=== PATIENT | male | born 1950 | race African-American/Black ===

== ENCOUNTER 2018-05-30 19:33 | Emergency (ER) | payer OTHER, BC ==
[~2018-05-30] VITALS: Ht 190.5 cm; Wt 89.1 kg
[2018-05-30 19:43] VITALS: Ht 190.5 cm; Wt 89.1 kg
[2018-05-30] MEDS ORDERED: OXYC-438 PO (20:33)
[2018-05-30] MEDS ORDERED: TRA50 PO (20:33)
[2018-05-30] MEDS ORDERED: INSU100I12 SQ (20:35)
[2018-05-30] MEDS ORDERED: LANT3I SC (20:35)
[2018-05-30] MEDS ORDERED: HYDR25TA6 PO (20:36)
[2018-05-30] MEDS ORDERED: CARV25TA79 PO (20:36)
[2018-05-30] MEDS ORDERED: LISI40TA3 PO (20:36)
[2018-05-30] MEDS ORDERED: LEVO150T7 PO (20:37)
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
[2018-05-30 22:01] VITALS: BP 156/88; PULSE 78; RESP 16
== END 2018-05-30 22:13 | disposition home or self-care (01) ==
LOC: E/R 19:33
DX: E11.649 Type 2 diabetes mellitus with hypoglycemia without coma (principal); I10 Essential (primary) hypertension; F17.210 Nicotine dependence, cigarettes, uncomplicated; Z79.4 Long term (current) use of insulin
CPT/HCPCS: 82962; 99282

== ENCOUNTER 2018-10-17 17:47 | Emergency (ER) | payer OTHER, BC ==
[~2018-10-17] VITALS: Ht 182.9 cm; Wt 77.3 kg
[~2018-10-17 17:47] MED LIST: CARV25TA79 PO; HYDR25TA6 PO; INSU100I12 SQ; LANT3I SC; LEVO150T7 PO; LISI40TA3 PO; OXYC-438 PO; TRA50 PO
[2018-10-17] MEDS ORDERED: SOD CHLORIDE 0.9% 500 ML IV STA (18:08)
[2018-10-17] MEDS ORDERED: DEXTROSE 50% 50 ML SYRINGE IV STA (18:08)
[2018-10-17 18:13] VITALS: Ht 182.9 cm; Wt 77.3 kg
--- NOTE | 2018-10-17 18:37 | ERD ---
ER Documentation Chief Complaint Chief Complaint hypoglycemia HPI This is a 68-year-old man brought in by EMS for hypoglycemia, patient does have diabetes and uses insulin/Lantus for blood sugar control but states he used his medication today and did not eat a full meal for lunch. Patient denies fevers or chills, no chest pain or shortness of breath, no vomiting, no seizure activity. ROS All systems reviewed and are negative except as per history of present illness. Medications Home Meds Reported Medications Levothyroxine Sodium* (Levothyroxine Sodium*) 150 Mcg Tablet, 150 MCG PO BEFORE BREAKFAST, #30 TAB 05/30/18 Lisinopril* (Lisinopril*) 40 Mg Tablet, 40 MG PO DAILY, #30 TAB 05/30/18 Carvedilol* (Carvedilol*) 25 Mg Tablet, 25 MG PO BID, #60 TAB 05/30/18 Hydrochlorothiazide* (Hydrochlorothiazide*) 25 Mg Tab, 25 MG PO DAILY, #30 TAB 05/30/18 Insulin Glargine* (Lantus*) 100 Unit/Ml Soln, 15 UNIT SC QHS, #1 VIAL 05/30/18 Insulin Lispro (Humalog Kwikpen U-100) 100 Unit/1 Ml Insuln.pen, 7 UNIT SQ BID, EA 05/30/18 Trazodone Hcl* (Desyrel*) 50 Mg Tablet, 50 MG PO QHS, #30 TAB 05/30/18 Oxycodone HCl/Acetaminophen (Oxycodone-Acetaminophen 5-325) 1 Each Tablet, 1 EACH PO Q8H, TAB 05/30/18 Allergies Allergies: Coded Allergies: No Known Allergy (Unverified , 05/30/18) PMhx/Soc Diabetes mellitus, hypertension, hypothyroidism History of Surgery: Yes (RIGHT HAND, HEMORRHOIDS ) Anesthesia Reaction: No Hx Neurological Disorder: No Hx Respiratory Disorders: No Hx Cardiac Disorders: Yes (HTN ) Hx Psychiatric Problems: No Hx Miscellaneous Medical Probl: Yes (DM II ) Hx Alcohol Use: Yes (SOCIALLY ) Hx Substance Use: Yes (MARIJUANA ) Hx Tobacco Use: Yes FmHx Family History: No diabetes Physical Exam Vitals Vital Signs Date Temp Pulse Resp B/P (MAP) Pulse Ox O2 O2 Flow FiO2 Time Delivery Rate 10/18/18 97.3 67 14 108/67 100 Room Air 06:00 (81) 10/18/18 97.3 64 25 155/72 100 Room Air 00:00 (99) 10/17/18 62 12 178/91 98 Room Air 18:15 (120) 10/17/18 97.2 65 14 170/152 96 18:13 (158) Physical Exam GENERAL: Well-developed, well-nourished, well-hydrated, patient was initially confused and minimally responsive although after IV dextrose mental status improved. Patient was afebrile HEENT: Moist mucous membranes, pink conjunctiva, no cervical spine tenderness or step-off deformities, no goiter, no jaundice or icterus, extraocular movements intact without pain. No submandibular induration, and no pharyngeal erythema NEURO: Alert and oriented 3, no focal deficits or facial asymmetry, moving all extremities, answers questions and follows commands without difficulty CARDIAC: Regular rate and rhythm, no murmurs rubs or gallops LUNGS: Clear bilaterally no wheezing crackles or stridor EXTREMITIES: No clubbing cyanosis or edema, calves are bilaterally symmetrical, no Homans sign, no popliteal cord sign. Distal pulses equal and bilateral PSYCH: Normal affect without agitation or irritability Result Diagram: [id number] Results 24 hrs Laboratory Tests Test 10/17/18 17:55 10/17/18 18:18 10/17/18 18:50 10/17/18 23:13 Bedside Glucose 23 mg/dL 299 mg/dL 114 mg/dL White Blood Count 4.7 10^3/ul Red Blood Count 4.27 10^6/ul Hemoglobin 13.2 g/dl Hematocrit 38.9 % Mean Corpuscular 91.1 fl Volume Mean Corpuscular 30.9 pg Hemoglobin Mean Corpuscular 33.9 g/dl Hemoglobin Concent Red Cell 13.2 % Distribution Width Platelet Count 163 10^3/UL Mean Platelet 10.8 fl Volume Immature 0.200 % Granulocytes % Neutrophils % 59.8 % Lymphocytes % 27.5 % Monocytes % 8.8 % Eosinophils % 2.4 % Basophils % 1.3 % Nucleated Red Blood 0.0 /100WBC Cells % Immature 0.010 10^3/ul Granulocytes # Neutrophils # 2.8 10^3/ul Lymphocytes # 1.3 10^3/ul Monocytes # 0.4 10^3/ul Eosinophils # 0.1 10^3/ul Basophils # 0.1 10^3/ul Nucleated Red Blood 0.0 10^3/ul Cells # Sodium Level 135 mmol/L Potassium Level 4.0 mmol/L Chloride Level 107 mmol/L Carbon Dioxide 18 mmol/L Level Anion Gap 10 Blood Urea Nitrogen 67 mg/dl Creatinine 2.48 mg/dl Est Glomerular 32 mL/min Filtrat Rate mL/min Glucose Level 282 mg/dl Calcium Level 9.0 mg/dl Total Bilirubin 0.2 mg/dl Direct Bilirubin 0.00 mg/dl Indirect Bilirubin 0.2 mg/dl Aspartate Amino 45 IU/L Transf (AST/SGOT) Alanine 32 IU/L Aminotransferase (A LT/SGPT) Alkaline 106 IU/L Phosphatase Troponin I 0.058 ng/ml Total Protein 8.1 g/dl Albumin 3.9 g/dl Globulin 4.20 g/dl Albumin/Globulin 0.92 Ratio Lipase 648 U/L Current Medications Medications Dose Sig/Kalpana Start Time Status Last (Trade) Ordered Route PRN Stop Time Admin Dose Reason Admin Dextrose 100 ml ONCE STAT 10/17/18 DC 10/17/18 (D50w IV 18:08 18:12 Syringe) 10/17/18 18:10 Sodium 500 ml @ Q1H STAT 10/17/18 DC 10/17/18 Chloride 500 mls/hr IV 18:08 18:14 10/17/18 19:07 Procedures/MDM IV line was established patient was placed on media monitor rhythm strip revealed a sinus rhythm at about 80 bpm with upright P and T waves. Patient was afebrile Patient was initially hypoglycemic and confused I administered 50 g of intravenous dextrose with immediate improvement in mental status, he was also given 500 cc normal saline IV Patient was given a meal tray here and ate it without difficulty. EKG performed, read by me revealed a paced rhythm at 67 bpm, left axis deviation, left bundle branch block, no concerning ST elevations or depressions noted. CBC and electrolytes are normal, liver function tests were normal, troponin was negative Differential diagnoses considered, included but not limited to acute coronary syndrome, pulmonary embolism, aortic dissection, abdominal aortic aneurysm, sepsis, stroke, meningitis, encephalitis, pneumonia, appendicitis, cholecystitis, bowel obstruction, pyelonephritis, nephrolithiasis, cystitis, as well as metabolic, hematologic, and electrolyte abnormalities. As well as abscess, cellulitis, fractures, and dislocations. Patient feels much better at this time, and vital signs are normal, symptoms have improved. I did give strict instructions to return to the ED if symptoms continue or worsen, patient will otherwise follow-up with primary care physician. Patient understood instructions and agreed to plan. Disclaimer: Inadvertent spelling and grammatical errors are likely due to EHR/dictation software use and do not reflect on the overall quality of patient care. Also, please note that the electronic time recorded on this note does not necessarily reflect the actual time of the patient encounter. Departure Diagnosis: Primary Impression: Hypoglycemia Condition: Good NATHAN AMADOR MD Oct 17, 2018 18:37
[2018-10-18 06:00] VITALS: BP 108/67; PULSE 67; RESP 14
== END 2018-10-18 06:00 | disposition home or self-care (01) ==
LOC: E/R 17:47
DX: E11.649 Type 2 diabetes mellitus with hypoglycemia without coma (principal); E03.9 Hypothyroidism, unspecified; I10 Essential (primary) hypertension; Z79.4 Long term (current) use of insulin; Z87.891 Personal history of nicotine dependence
CPT/HCPCS: 36415; 80053; 82962; 83690; 84484; 85025; 93005; 96361; 96374; 99284; J7040

== ENCOUNTER 2019-01-01 19:33 | Emergency (ER) | payer BC ==
[~2019-01-01] VITALS: Ht 190.5 cm; Wt 81.0 kg
[~2019-01-01 19:33] MED LIST changes: +CARB200C2 PO; +NITR-58 PO; +OXYC-431 PO; +TAMS-14 PO
[2019-01-01 19:40] VITALS: Ht 190.5 cm; Wt 81.0 kg
[2019-01-01] MEDS ORDERED: NITROFURANTOIN (SR) 100 MG CAP PO ONE (20:30)
[2019-01-01] MEDS ORDERED: TAMSULOSIN (SR) 0.4 MG CAP PO ONE (20:30)
[2019-01-01] MEDS ORDERED: HYDROCODONE/APAP (10/325) TAB PO ONE (20:30)
[2019-01-01 21:20] VITALS: BP 147/86; PULSE 60; RESP 16
== END 2019-01-01 21:22 | disposition home or self-care (01) ==
LOC: E/R 19:33
DX: N30.90 Cystitis, unspecified without hematuria (principal); I10 Essential (primary) hypertension; E11.9 Type 2 diabetes mellitus without complications; F17.210 Nicotine dependence, cigarettes, uncomplicated; Z79.4 Long term (current) use of insulin
CPT/HCPCS: 81001; 87086; 99283